=== PATIENT | male | born 1965 | race Caucasian/White ===

== ENCOUNTER 2021-01-15 07:06 | Emergency (ER) | payer OTHER, SELFPAY ==
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
[2021-01-15 07:13] VITALS: BP 133/88; PULSE 81; RESP 19; TEMP 36.6; O2SAT 94
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
[2021-01-15 08:56] VITALS: BP 130/93; PULSE 76; RESP 12; O2SAT 98
[2021-01-15] MEDS: NAPROXEN 500 MG TABLET PO (08:56)
[2021-01-15 09:27] VITALS: BP 137/94; PULSE 71; RESP 12; O2SAT 97
== END 2021-01-15 09:31 | disposition home or self-care (01) ==
PROVIDERS: Emergency Provider Emergency Medicine; PCP Internal Medicine
DX: S20.219A Contusion of unspecified front wall of thorax, initial encounter (principal); V58.5XXA Driver of pick-up truck or van injured in noncollision transport accident in traffic accident, initial encounter
CPT/HCPCS: 71250; 99284; A9270

== ENCOUNTER 2022-05-14 16:28 | Outpatient (CLI) | payer OTHER, SELFPAY ==
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
== END 2022-05-14 16:29 | disposition home or self-care (01) ==
PROVIDERS: Visit Provider Urology
DX: R31.0 Gross hematuria (principal)
CPT/HCPCS: 74176

== ENCOUNTER 2022-06-04 01:47 | Day surgery (SDC) | payer OTHER, SELFPAY ==
[2022-06-03 08:12] VITALS: BMI 34.7
--- NOTE | 2022-06-03 08:19 | PC.NURSE ---
Report to the Outpatient Waiting Room, entrance under the green pavilion located off [facility], at time _0615_ on date _[id number]_. OR Time: _08_. - You and your visitor will be asked to self-screen and do not enter if you have any COVID symptoms. - Only one visitor and NO children visitors are allowed at this time. - The patient visitor is requested to leave or wait in car when not with patient due to restrictions. - A mask is required within the hospital. Patients may have clear liquids (water, carbonated beverages, clear teas, apple juice) until 3 hours prior to surgery with a maximum of 20 ounces. - No food from midnight until time of surgery Take the following medications with a SIP of water the morning of surgery: __None Medications to discontinue per physician ____None Date to take last dose Please no make-up, nail macedonian, hairspray, perfume, deodorant, or body powder the day of surgery. No jewelry (including any body piercings) or valuables the day of surgery, leave them at home. Please take a shower or bath the night before, or the morning of, surgery with an antibacterial soap. Wear comfortable, loose fitting clothing. - Jewelry must be removed prior to entering the operating room. Rings and piercings that are not removed may be cut off. - The hospital will not accept responsibility for valuables. - Please leave all valuables, including medications, at home the day of surgery. If you are going home after surgery, a licensed laundry route driver must drive you home. - NO public transportation without another adult. - We recommend that an adult stay with you for 24 hours following discharge. - We also recommend that you do not drive, make important decision, drink alcoholic beverages, or take any drugs that were not prescribed by your health care provider for at least 24 hours after your discharge time. Follow any additional instructions given to you from your surgeon. If you or anyone in your household have experienced Covid symptoms in the past week, please notify your surgeon or the nurse liaison at the phone number below for possible testing. Telephone instructions given to __Patient and asked if any additional questions and then verbalized understanding. Patient advised to call surgeon office or pre surgery nurse liaison [phone] if any additional questions.
[2022-06-04] VITALS (12 sets, daily range): BP systolic 121–149; BP diastolic 78–95; PULSE 56–72; RESP 14–16; TEMP 36.3–36.5; O2SAT 95–100
--- NOTE | ~2022-06-04 | XR_ITS ---
EXAMINATION: XR retrograde pyelogram BI DATE: 06/04/2022 08:31 INDICATION: Gross hematuria. Bilateral retrograde pyelograms. TECHNIQUE: 129 fluoroscopic images of the abdomen and pelvis were obtained during procedure performed by Dr. Kellogg. Radiologist was not present for the imaging or procedure. The amount of fluoroscopy t judit used during this procedure was 0.6 minutes. COMPARISON: None. FINDINGS: Numerous surgical clips projecting over the abdomen and pelvis consistent with prior ventral hernia m esh repair. Retrograde contrast injections into the bilateral ureters with opacification of the renal collecting systems demonstrate no hydronephrosis or urothelial irregularities. Multiple mobile lucen cies are seen during the course of the injections which appear to change in size and shape correspond ing to the contours of the ureters which be consistent with injected gas bubbles. IMPRESSION: 1. Normal bilateral retrograde pyelograms. See procedure note for further detail. Reviewed, dictated and finalized at location A. IMPRESSION: 1. Normal bilateral retrograde pyelograms. See procedure note for further detai roslyn
--- NOTE | 2022-06-04 06:46 | WPDHPUPDATE1 ---
History and Physical Update Update Date/Time: 06/04/22 06:46 History and Physical has been reviewed, including an updated exam of the patient. There are NO changes in the patient's condition. Risks, benefits, and alternatives have been discussed and questions answered. Patient agrees to proceed with procedure.
[2022-06-04] MEDS: LACTATED RINGERS 1,000 ML 30 ML IV CONT ×2 (07:00→09:21)
--- NOTE | 2022-06-04 07:01 | ECG_ITS ---
Measurements Intervals [place] Rate: 64 P: 13 MS: 215 QRS: -34 QRSD: 152 T: 12 QT: 440 QTc: 455 Interpretive Statements SINUS RHYTHM WITH FIRST DEGREE AV BLOCK LEFT AXIS DEVIATION RIGHT BUNDLE BRANCH BLOCK ABNORMAL ECG NO PREVIOUS ECG AVAILABLE FOR COMPARISON Electronically Signed On 06-04-2022 8:11:27 CDT by Mike Barraza D.O.
--- NOTE | 2022-06-04 07:47 | P.PNAN_ITS ---
Anes - Initial Pre Proc Eval Procedure: Operation Date: 06/04/22 08:15 Proposed Procedures p Cystoscopy, Bilateral Retrograde Pylogram - Carlos Kellogg MD s Trans Urethral Resection Bladder Tumor with Gemcitabine Instillation - Carlos Kellogg MD Date/Time: 06/04/22 07:47 Surgeon: Carlos Kellogg MD Pre Op Diagnosis: bladder tumor, gross hematuria Patient Data Age: 56 Gender: M Height: 1.83 m Weight: 120.3 kg Last Vital Signs Temp 36.3 C L 06/04/22 07:39 Pulse 66 06/04/22 07:39 Resp 14 06/04/22 07:39 BP 138/80 06/04/22 07:39 Pulse Ox 100 06/04/22 07:39 O2 Del Method Room Air 06/04/22 07:39 Allergies Allergy/AdvReac Type Severity Reaction Status Date / Time clarithromycin Allergy Mild Unknown Verified 06/04/22 07:43 Home Medications Medication Instructions Recorded Confirmed Type atorvastatin 10 mg tablet 10 mg PO HS 01/15/21 06/03/22 History dutasteride 0.5 mg capsule 0.5 mg PO HS 01/15/21 06/03/22 History ramipril 10 mg capsule 10 mg PO HS 01/15/21 06/03/22 History Patient hx anesthesia problems: none Family hx anesthesia problems: none Results Review: All pre-operative results and documents have been reviewed as part of the pre- operative evaluation. [facility], [facility] Past Medical History Medical History Bladder cancer Hx of migraines Hyperlipidemia Hypertension GISEL (obstructive sleep apnea) Social History Social History Smoking status: Never smoker Living arrangements: with family Gender identity (if verbalized by the patient): Male Spiritual care concerns: No Anes - Eval Final PreProcedure Day of Procedure 06/04/22 07:47 Patient weight: obese Heart: regular rate and rhythm Lungs: clear to auscultation Airway: Mallampati scale class II Neurological: alert and oriented Last oral intake: >/= 8 hours ASA classification: III Emergent: no Anesthetic plan: proceed Anesthesia type and monitoring: general LMA and standard monitoring Results Review: All pre-operative results and documents have been reviewed as part of the pre- operative evaluation. Informed Consent: The patient's anesthetic plan and its attendant risks and benefits were discussed with the patient/family/POA. Questions were solicited and answers provided to the satisfaction of the patient/family/POA.
[2022-06-04] MEDS: ceFAZolin 3 GM/D5W 100 ML 100 ML IVPB (08:04)
--- NOTE | 2022-06-04 08:33 | W.PM.PROC2 ---
Procedure Note - Detailed Date of Procedure 06/04/22 Pre-op Diagnosis Bladder tumor, gross hematuria Post-op Diagnosis Same Procedure Performed cystoscopy, bilateral retrograde pyelography, TURBT ( medium, 4 cm) Surgeon Carlos Kellogg MD Description of Procedure patient is brought the operative suite was prepped draped in routine sterile fashion while in dorsal lithotomy position after the uneventful induction of a general LMA anesthetic. 2% lidocaine jelly was introduced intraurethrally and cystoscopy is undertaken with a 21 F rigid cystoscope. There was no urethral strictures. He has moderate lateral lobe hyperplasia of the prostate without a median lobe. There was a 3-4 cm pedunculated papillary neoplasm just inside the bladder neck at the 6 o'clock position. The remainder of the bladder mucosa is normal without additional neoplasm. There was no mucosal hyperemia. He has a single orthotopic ureteral orifice bilaterally. Angiographic catheter was used to obtain retrograde pyelograms which showed no upper tract obstruction filling defects or other identifiable pathology. The cystoscope was then exchanged for a 24 F resectoscope. This papillary neoplasm was resected with an attempt made to include detrusor muscle for pathological evaluation of invasion. The base and periphery was cauterized with rollerball electrode. The resectoscope was removed an 18 F catheter was placed to drainage. Patient tolerated this procedure well was taken recovery room good condition. Pathology Yes Complications No immediate complications Condition Stable Disposition PACU
--- NOTE | 2022-06-04 08:38 | W.PM.PROC2 ---
Procedure Note - Detailed Date of Procedure 06/04/22 Pre-op Diagnosis bladder tumor, gross hematuria Post-op Diagnosis Same Procedure Performed Gemcitabine installation into bladder Surgeon Carlos Kellogg MD Anesthesia None Description of Procedure With the patient in the supine position, a 16F Nash catheter is placed using sterile technique. Using a protective facemask, gown and double layer of gloves Gemcitabine 2gm in 100cc saline is administered through the catheter/into the bladder. The catheter is then plugged. Patient was instructed to lie supine x20min, then to roll both the left and right x20 min. each. Total dwell time will be 60 min., after which the bladder will be drained and catheter removed. Packing No Pathology None sent Complications No immediate complications Condition Stable
[2022-06-04] MEDS: SODIUM CHLORIDE 0.9% IV 23.7 ML, GEMCITABINE HCL 1,000 MG BLADDER ×2 (08:53)
[2022-06-04] MEDS: fentaNYL CITRATE INJ (*CRX) 100 MCG/2 ML VIAL 25 MCG IV PUSH ×4 (08:56→09:48)
[2022-06-04] MEDS: SODIUM CHLORIDE 0.9% IV 50 ML BAG 150 ML IRRIGATION (10:05)
== END 2022-06-04 11:35 | disposition home or self-care (01) ==
PROVIDERS: Visit Provider Urology
PROC: (CPT 52352; principal; 2022-06-04 08:15)
PROC: 0TBB8ZZ Excision of Bladder, Via Natural or Artificial Opening Endoscopic (ICD-10-PCS; CPT 52235; 2022-06-04 08:15)
DX: D30.3 Benign neoplasm of bladder (principal); N40.0 Benign prostatic hyperplasia without lower urinary tract symptoms; I10 Essential (primary) hypertension; E78.00 Pure hypercholesterolemia, unspecified; G47.33 Obstructive sleep apnea (adult) (pediatric); E66.9 Obesity, unspecified; Z68.36 Body mass index [BMI] 36.0-36.9, adult
CPT/HCPCS: 52235; 51720; 74420; 88305; 93005; A9270; C1758; C1769; C1887; J0690; J1100; J2250; J2405; J2704; J3010; J7120; J9201; Q9966